=== PATIENT | male | born 1990 | race Caucasian/White ===

== ENCOUNTER 2021-02-16 18:37 | Emergency (ER) | payer OTHER ==
[2021-02-16] MEDS ORDERED: LORazepam 2 MG/ML INJ IV STA ×2 (19:15→21:45)
[2021-02-16] MEDS ORDERED: SODIUM CHLORIDE 0.9% 1,000 ML IV STA (19:15)
[2021-02-16] MEDS ORDERED: FOLIC ACID 1 MG TAB PO STA (19:16)
[2021-02-16] MEDS ORDERED: THIAMINE 100 MG/ML 2 ML VIAL IM STA (19:16)
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
[2021-02-16 19:53] LABS: ALT 182 U/L (4-49); AST 350 U/L (17-59); African American GFR (CKD) >90 (>60 ml/min/1.73 sqM); Albumin 4.8 g/dL (3.5-5.0); Alkaline Phosphatase 254 U/L (38-126); Anion Gap 12 mmol/L; Blood Urea Nitrogen 10 mg/dL (9-20); Calcium 10.6 mg/dL (8.4-10.2); Carbon Dioxide 29 mmol/L (22-30); Chloride 95 mmol/L (98-107); Glucose 119 mg/dL (74-99); Non-African American GFR(CKD) >90 (>60 ml/min/1.73 sqM); Potassium 4.3 mmol/L (3.5-5.1); Sodium 136 mmol/L (137-145); Total Protein 7.5 g/dL (6.3-8.2)
[2021-02-16 20:01] LABS: Basophils % (A) 1 %; Eosinophils # (A) 0.1 k/uL (0-0.7); Eosinophils % (A) 3 %; HCT 42.9 % (39.0-53.0); HGB 14.7 gm/dL (13.0-17.5); Lymphocytes # (A) 0.7 k/uL (1.0-4.8); Lymphocytes % (A) 30 %; MCH 35.5 pg (25.0-35.0); MCHC 34.2 g/dL (31.0-37.0); MCV 103.8 fL (80.0-100.0); Macrocytosis Slight; Mean Platelet Volume 11.7; Monocytes # (A) 0.2 k/uL (0-1.0); Monocytes % (A) 7 %; Neutrophils # (A) 1.3 k/uL (1.3-7.7); Neutrophils % (A) 57 %; RBC 4.13 m/uL (4.30-5.90); RDW 13.5 % (11.5-15.5); WBC 2.2 k/uL (3.8-10.6)
[2021-02-16 20:26] LABS: Appearance,Urine Clear (Clear); Bacteria,Urine Rare /hpf; Bilirubin,Urine Negative (Negative); Blood,Urine Negative (Negative); Color,Urine Yellow; Glucose,Urine (UA) Negative (Negative); Ketones,Urine Trace (Negative); Leukocyte Esterase,Urine Trace (Negative); Nitrite,Urine Negative (Negative); Protein,Urine 1+ (Negative); RBC,Urine 5 /hpf (0-5); Specific Gravity,Urine 1.011 (1.001-1.035); WBC,Urine 6 /hpf (0-5)
[2021-02-16] MEDS ORDERED: MAGNESIUM SULFATE-D5W PMX 1 GM in DEXTROSE/WATER 1 100ML.BAG IVPB STA (20:37)
[2021-02-16 20:44] LABS: Platelet Count 90 k/uL (150-450)
--- NOTE | 2021-02-16 21:14 | CT ---
EXAMINATION TYPE: CT brain wo con DATE OF EXAM: 02/16/2021 COMPARISON: None HISTORY: Seizure with head injury. CT DLP: 1100.4 mGycm Automated exposure control for dose reduction was used. Ventricles have normal size. There is no mass effect nor midline shift. There is no evidence of intra cranial hemorrhage. There is thinning of the frontal bone on the right side of midline. There is some fat density replacing the outer table. This area measures approximate 2.67 m in diameter. This could be old craniotomy defect. The adjacent brain appears normal. The skull base is intact. IMPRESSION: Brain appears normal. Right frontal bone abnormality could relate to previous surgery or unusual bone cyst. The appearance is benign.
[2021-02-16] MEDS ORDERED: cloNIDine HCL 0.1 MG TAB PO STA (22:01)
[2021-02-16 23:33] VITALS: BP 156/122; PULSE 64; RESP 16
== END 2021-02-16 23:35 | disposition home or self-care (01) ==
LOC: EC 18:37
DX: G40.409 Other generalized epilepsy and epileptic syndromes, not intractable, without status epilepticus (principal); E83.42 Hypomagnesemia; F17.200 Nicotine dependence, unspecified, uncomplicated
CPT/HCPCS: 99285 ×2; 96365 ×2; 96366 ×2; 96375 ×2; 96376 ×2; 96372 ×2; 36415; 93005; 80053; 83735; 85025; 81001; 70450; J2060; J3411; J3475